=== PATIENT | female | born 1995 | race American Indian/Alaskan Native ===

== ENCOUNTER 2019-04-09 16:21 | Emergency (ER) | payer OTHER, BC ==
[2019-04-09 16:39] VITALS: BP 164/79
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
[2019-04-09] MEDS ORDERED: FLEXERIL PO ONE (19:08)
[2019-04-09] MEDS ORDERED: NORCO 5/325 PO ONE (19:08)
[2019-04-09] MEDS ORDERED: TRIPLE ANTIBIOTIC TP ONE (19:09)
[2019-04-09] MEDS ORDERED: TRIPLE ANTIBIOTIC TP SCH (20:00)
== END 2019-04-09 21:07 | disposition home or self-care (01) ==
LOC: ED 16:21
DX: S80.12XA Contusion of left lower leg, initial encounter (principal); S40.812A Abrasion of left upper arm, initial encounter; Z79.899 Other long term (current) drug therapy; V89.2XXA Person injured in unspecified motor-vehicle accident, traffic, initial encounter; Y93.89 Activity, other specified; Y92.488 Other paved roadways as the place of occurrence of the external cause; Y99.8 Other external cause status
CPT/HCPCS: 99283; A6250

== ENCOUNTER 2019-08-09 08:40 | Emergency (ER) | payer BC, OTHER ==
--- NOTE | 2019-08-09 11:26 | Emergency Department Report ---
Minor Respiratory - HPI Chief Complaint: Upper Respiratory Infection Stated Complaint: THROAT PAIN/CHILLS/BODY PAIN Time Seen by Provider: 08/09/19 11:09 Duration: 2 Days Pain Location: Throat Severity: moderate Minor Respiratory: Yes Rhinorrhea, Yes Sore Throat, Yes Able to Tolerate Fluids, No Ear Pain, No Cough, No Sick Contacts, No Hemoptysis, No Chest Pain, No Shor tness of Breath, No Fever Other History: This is a 23-year-old -[place] female who presents to the emergency room with sore throat, myalgia for 2 days. Patient currently taking Mucinex with minimal improvement of symptoms. She denies nausea, vomiting, diarrhea, headache, or dizziness. ED Review of Systems ROS: Stated complaint: THROAT PAIN/CHILLS/BODY PAIN Other details as noted in HPI Constitutional: denies: chills, fever ENT: throat pain, congestion. denies: ear pain Respiratory: denies: cough, shortness of breath, wheezing Cardiovascular: denies: chest pain, palpitations Gastrointestinal: denies: abdominal pain, nausea, diarrhea Musculoskeletal: myalgia. denies: back pain, joint swelling, arthralgia Skin: denies: rash, lesions Neurological: denies: headache, weakness, paresthesias Psychiatric: denies: anxiety, depression ED Past Medical Hx - Social History Smoking Status: Never Smoker Substance Use Type: None - Medications Home Medications: Home Medications Medication Instructions Recorded Confirmed Last Taken Type Cyclobenzaprine [Flexeril] 10 mg PO TID PRN #12 tablet 04/09/19 Unknown Rx Ibuprofen [Motrin] 800 mg PO Q8HR PRN #12 tablet 04/09/19 Unknown Rx methylPREDNISolone [Medrol 4MG 4 mg PO DAILY #1 tab.ds.pk 08/09/19 Unknown Rx DOSEPAK (21 tabs)] Minor Respiratory Exam - Exam General: Vital signs noted. No distress. Alert and acting appropriately. HEENT: Yes Pharyngeal Erythema (erythematous and enlarged tonsils with exudate, uvula midline), Yes Moist Mucous Membranes, Yes Rhinorrhea (turbinates congested with clear discharge), No Pharyngeal Exudates, No Conjuctival Injection, No Frontal Tenderness, No Maxillary Tenderness Ear: Neither TM Bulge, Neither TM Erythema, Neither EAC Pain, Neither EAC Discharge Neck: Yes Supple, No Adenopathy Lungs: Yes Good Air Exchange, No Wheezes, No Ronchi, No Stridor, No Cough, No Labored Respirations, No Retractions, No Use of Accessory Muscles, No Other Abnormal Lung Sounds Heart: Yes Regular, No Murmur Abdomen: Yes Normal Bowel Sounds, No Tenderness, No Peritoneal Signs Skin: No Rash, No Edema Neurologic: Alert and oriented, no deficits. Musculoskeletal: Unremarkable. ED Course Vital Signs 08/09/19 08:46 Temperature 98.6 F Pulse Rate 91 H Respiratory 18 Rate Blood Pressure 127/45 O2 Sat by Pulse 99 Oximetry ED Medical Decision Making - Lab Data Lab Results 08/09/19 Range/Units Unknown Group A Strep Rapid Positive A (Negative) - Medical Decision Making This is a 23 y.o. female that presents with sore throat for 2 days. Patient examined by me and stable. Vitals stable. No distress noted. Rapid strep obtained and positive. Given bicillin I-A 1.2 mL IM once in ER. Start Medrol Dosepak. Take Tylenol or ibuprofen for pain. Discussed plan with patient and she agreed with plan to treat outpatient. Discharged home. Return to work tomorrow. Follow up with PCP in 48-72 hours. Critical care attestation.: If time is entered above; I have spent that time in minutes in the direct care of this critically ill patient, excluding procedure time. ED Disposition Clinical Impression: Sore throat, Acute streptococcal pharyngitis Disposition: - TO HOME OR SELFCARE Is pt being admited?: No Condition: Stable Instructions: Strep Throat (ED) Additional Instructions: Expect symptoms to improve within 3 or 4 days. There is no need for bed rest or isolation. Use Tylenol or ibuprofen for symptoms of sore throat, headache, and fever. Return to work in 24 hours of taking antibiotics. Follow up with Primary Care Provider in 48-72 hours. Prescriptions: methylPREDNISolone [Medrol 4MG DOSEPAK (21 tabs)] 4 mg PO DAILY #1 tab.ds.pk Referrals: DAIANA LUCAS MD [Staff Physician] - 3-5 Days [facility] [Provider Group] - 3-5 Days [employer] [facility] [Provider Group] - 3-5 Days Forms: Work/School Release Form(ED) Time of Disposition: 12:28
[2019-08-09] MEDS ORDERED: PENICILLIN G BENZATHINE 1.2 MILLION UNIT/2 ML INJ IM ONE (12:31)
[2019-08-09 12:56] VITALS: BP 121/50
== END 2019-08-09 12:55 | disposition home or self-care (01) ==
LOC: ED 08:40
DX: J02.0 Streptococcal pharyngitis (principal)
CPT/HCPCS: 87430; 96372; 99283; J0561

== ENCOUNTER 2019-09-22 09:31 | Outpatient (CLI) | payer BC ==
[2019-09-22 11:09] LABS: Chol/HDL Ratio 3.03 %
== END 2019-09-22 09:32 | disposition home or self-care (01) ==
LOC: LAB 09:31
PROVIDERS: ATTEND Obstetrics & Gynecology
DX: Z13.220 Encounter for screening for lipoid disorders (principal); Z13.1 Encounter for screening for diabetes mellitus
CPT/HCPCS: 36415; 80061; 82947

== ENCOUNTER 2020-08-31 09:47 | Outpatient (CLI) | payer BC ==
[2020-08-31 10:40] LABS: Basophils % (Auto) 0.6 % (0.0-1.8); Eosinophils # (Auto) 0.1 K/mm3 (0.0-0.4); Eosinophils % (Auto) 1.4 % (0.0-4.3); Hematocrit 36.4 % (30.3-42.9); Hemoglobin 12.4 gm/dl (10.1-14.3); Lymphocytes # (Auto) 0.9 K/mm3 (1.2-5.4); Lymphocytes % (Auto) 16.7 % (13.4-35.0); Mean Corpuscular HGB Conc 34 % (30-34); Mean Corpuscular Volume 81 fl (79-97); Monocytes # (Auto) 0.4 K/mm3 (0.0-0.8); Platelet Count 328 K/mm3 (140-440); Red Blood Count 4.53 M/mm3 (3.65-5.03); Red Cell Distribution Width 13.5 % (13.2-15.2)
[2020-08-31 10:41] LABS: Alanine Aminotransferase 11 units/L (7-56); BUN/Creatinine Ratio 15; Blood Urea Nitrogen 12 mg/dL (7-17); Calcium 8.9 mg/dL (8.4-10.2); Chol/HDL Ratio 2.84 %; HDL Cholesterol 63 mg/dL (40-59); Hemolysis Index 4; LDL Cholesterol,Direct 118 mg/dL (50-130)
== END 2020-08-31 09:48 | disposition home or self-care (01) ==
LOC: LAB 09:47
PROVIDERS: ATTEND Internal Medicine
DX: Z00.00 Encounter for general adult medical examination without abnormal findings (principal); Z13.220 Encounter for screening for lipoid disorders; Z13.29 Encounter for screening for other suspected endocrine disorder; E55.9 Vitamin D deficiency, unspecified
CPT/HCPCS: 36415; 80053; 80061; 82306; 83036; 84443; 85025